=== PATIENT | male | born 1980 | race Caucasian/White ===

== ENCOUNTER 2023-04-25 16:07 | Emergency (ER) | payer OTHER, MEDICAID ==
[~2023-04-25] VITALS: Ht 165.1 cm; Wt 83.9 kg
[2023-04-25 16:22] VITALS: BP_SYST 143; PULSE 87; RESP 18; TEMP 98; O2SAT 94
[2023-04-25] MEDS ORDERED: MORPHINE 4 MG INJ. 4 MG/ML VIAL IM ONE (20:00)
[2023-04-25] MEDS ORDERED: SULF1TAB48 PO (23:32)
[2023-04-26 00:07] VITALS: BP_SYST 157; PULSE 95; RESP 20; TEMP 98; O2SAT 96
== END 2023-04-26 00:07 | disposition home or self-care (01) ==
LOC: SED 16:07
DX: L03.115 Cellulitis of right lower limb (principal); M79.18 Myalgia, other site; R22.41 Localized swelling, mass and lump, right lower limb; E11.9 Type 2 diabetes mellitus without complications; Z79.899 Other long term (current) drug therapy
CPT/HCPCS: 99285; 93971; 73552; 96372; J2270

== ENCOUNTER 2023-06-23 16:44 | Emergency (ER) | payer OTHER, MEDICAID ==
[~2023-06-23] VITALS: Ht 162.6 cm; Wt 88.5 kg
[~2023-06-23 16:44] MED LIST: SULF1TAB48 PO
[2023-06-23 17:10] VITALS: BP_SYST 169; PULSE 95; RESP 15; TEMP 97.8; O2SAT 94
[2023-06-23 17:43] LABS: BASOPHILS % (AUTO) 0.5 % (0.0-2.0); EOSINOPHILS # (AUTO) 0.1 K/uL (0.0-0.4); EOSINOPHILS % (AUTO) 1.4 % (0.0-4.0); HEMATOCRIT 30.1 % (36-54); HEMOGLOBIN 10.4 g/dL (14.0-18.0); LYMPHOCYTES # (AUTO) 0.3 K/uL (1.0-5.5); LYMPHOCYTES % (AUTO) 4.8 % (20.5-51.5); MEAN CORPUSCULAR HEMOGLOBIN 35 pg (27-31); MEAN CORPUSCULAR HGB CONC 35 % (32-36); MEAN CORPUSCULAR VOLUME 102 fL (79.0-98.0); MONOCYTES # (AUTO) 0.6 K/uL (0.0-1.0); MONOCYTES % (AUTO) 9.4 % (1.7-9.3); NEUTROPHILS # (AUTO) 5.6 K/uL (1.8-7.7); NEUTROPHILS % (AUTO) 83.9 % (40.0-70.0); PLATELET COUNT (AUTO) 235 K/uL (130-430); RED BLOOD CELL COUNT(AUTO) 2.96 MIL/uL (4.2-6.2); RED CELL DISTRIBUTION WIDTH 15.7 % (9.0-15.0); WHITE BLOOD COUNT (AUTO) 6.6 K/uL (4.8-10.8)
[2023-06-23 17:57] LABS: ALBUMIN 3.7 g/dL (3.4-4.8); CALCIUM 8.7 mg/dL (8.4-11.0); CREATININE 6.56 mg/dL (0.55-1.30); POTASSIUM 4.4 mmol/L (3.5-5.1); TOTAL BILIRUBIN 0.6 mg/dL (0.0-1.0); TOTAL PROTEIN, SERUM 8.3 g/dL (6.4-8.3)
[2023-06-23 18:07] LABS: BILIRUBIN,DIRECT 0.2 mg/dL (0.0-0.3)
[2023-06-23 18:22] LABS: INR 1.1 (0.80-1.20); PROTHROMBIN TIME 11.5 SECS (9.5-12.5)
[2023-06-23] MEDS ORDERED: HYDR-3917 PO (19:11)
== END 2023-06-23 19:25 | disposition home or self-care (01) ==
LOC: SED 16:44
DX: R22.41 Localized swelling, mass and lump, right lower limb (principal); E11.9 Type 2 diabetes mellitus without complications; Z79.899 Other long term (current) drug therapy
CPT/HCPCS: 36415; 80048; 80076; 83605; 85025; 85610; 85730; 99283

== ENCOUNTER 2023-08-13 23:27 | Emergency (ER) | payer OTHER, MEDICAID ==
[~2023-08-13] VITALS: Ht 162.6 cm; Wt 88.5 kg
[~2023-08-13 23:27] MED LIST changes: +HYDR-3917 PO
[2023-08-13 23:40] VITALS: BP_SYST 175; PULSE 97; RESP 18; TEMP 97.8; O2SAT 96
[2023-08-14 00:08] VITALS: BP_SYST 175; PULSE 97; RESP 18; TEMP 97.8; O2SAT 96
== END 2023-08-14 00:08 | disposition home or self-care (01) ==
LOC: SED 23:27
DX: I89.8 Other specified noninfective disorders of lymphatic vessels and lymph nodes (principal); E11.22 Type 2 diabetes mellitus with diabetic chronic kidney disease; N18.6 End stage renal disease
CPT/HCPCS: 71045; 99283